=== PATIENT | male | born 1980 | race Caucasian/White ===

== ENCOUNTER 2016-06-14 20:44 | Emergency (ER) | payer BC ==
[2016-06-14 21:17] VITALS: BP 115/71
--- NOTE | 2016-06-14 21:17 | EDM.PDOC ---
ED HPI Behavioral Health - General Chief Complaint: Drug or Alcohol Abuse Stated Complaint: DETOX Time Seen by Provider: 06/14/16 21:17 Source of Information: Reports: Patient, Family Exam Limitations: Reports: No limitations - History of Present Illness INITIAL COMMENTS - FREE TEXT/NARRATIVE: HISTORY AND PHYSICAL: [35-year-old male presenting with alcohol intake requesting detox History of Present Illness: [Patient has been drinking for over a year to be with beer States occasional hard liquor He is agreeable to be evaluated in [place] art intake refusing evaluation here] Review of Systems: As per history of present illness and below otherwise all systems reviewed and negative. Past medical history: As per history of present illness and as reviewed below otherwise noncontributory. Surgical history: As per history of present illness and as reviewed below otherwise noncontributory. Social history: No reported history of drug or alcohol abuse. Family history: As per history of present illness and as reviewed below otherwise noncontributory. Physical exam: Alert male who as alcoholics Answer questions appropriately States that he does not want to be treated here Diagnostics: [] Therapeutics: [] Impression: [] Alcohol abuse Plan: [Presented to [facility] for alcohol evaluation] Call was made to in the ER I spoke with Dr. Senior 9:30 PM who is aware that patient is on his way Definitive disposition and diagnosis as appropriate pending reevaluation and review of above. - Related Data Allergies Allergy/AdvReac Type Severity Reaction Status Date / Time No Known Allergies Allergy Verified 06/14/16 21:17 Home Medications: Home Meds . [No Known Home Meds] 06/14/16 [History] ED ROS GENERAL - Review of Systems Review Of Systems: ROS reveals no pertinent complaints other than HPI. ED EXAM, BEHAVIORAL HEALTH - Physical Exam Exam: See Below (see dictation) COURSE, BEHAVIORAL HEALTH COMP - Course Vital Signs: Last Vital Signs Temp 36.7 C 06/14/16 21:13 Pulse 103 H 06/14/16 21:13 Resp 19 06/14/16 21:13 BP 115/71 06/14/16 21:13 Pulse Ox 95 06/14/16 21:13 Departure - Departure Time of Disposition: 21:38 Disposition: DC/Tfer to Acute Hospital 02 Condition: fair Clinical Impression: Alcohol abuse Forms: ED Department Discharge Additional Instructions: The following information is given to patients seen in the emergency department who are being discharged to home. This information is to outline your options for follow-up care. We provide all patients seen in our emergency department with a follow-up referral. The need for follow-up, as well as the timing and circumstances, are variable depending upon the specifics of your emergency department visit. If you don't have a primary care physician on staff, we will provide you with a referral. We always advise you to contact your personal physician following an emergency department visit to inform them of the circumstance of the visit and for follow-up with them and/or the need for any referrals to a consulting specialist. The emergency department will also refer you to a specialist when appropriate. This referral assures that you have the opportunity for followup care with a specialist. All of these measure are taken in an effort to provide you with optimal care, which includes your followup. Under all circumstances we always encourage you to contact your private physician who remains a resource for coordinating your care. When calling for followup care, please make the office aware that this follow-up is from your recent emergency room visit. If for any reason you are refused follow-up, please contact the [facility] emergency department at and asked to speak to the emergency department charge nurse. Patient has left per private vehicle to travel to [place]
== END 2016-06-14 21:52 | disposition home or self-care (01) ==
LOC: MW.ED 20:44
DX: F10.10 Alcohol abuse, uncomplicated (principal)
CPT/HCPCS: 99282

== ENCOUNTER 2016-10-07 19:33 | Emergency (ER) | payer SELFPAY ==
--- NOTE | 2016-10-07 19:38 | EDM.PDOC ---
ED HPI GENERAL MEDICAL PROBLEM - General Chief Complaint: Behavioral/Psych Stated Complaint: SUICIDAL Time Seen by Provider: 10/07/16 19:34 - History of Present Illness INITIAL COMMENTS - FREE TEXT/NARRATIVE: HISTORY AND PHYSICAL: History of present illness: Patient 36-year-old white male presents status post attempted suicide in the form of pain he went outside to try to do this neighbors called police they arrived they ligature from his neck there was no injury there is no association is awake alert in no seeming injury. He denies any ingestions or other concern he admits to alcohol problems and states he's had personal problems with his children. He remains depressed and suicidal he is somewhat somnolent here but he is polite and cooperative at this point Review of systems: As per history of present illness and below otherwise all systems reviewed and negative. Past medical history: As per history of present illness and as reviewed below otherwise noncontributory. Surgical history: As per history of present illness and as reviewed below otherwise noncontributory. Social history: No reported history of drug or alcohol abuse. Family history: As per history of present illness and as reviewed below otherwise noncontributory. Physical exam: HEENT: Atraumatic, normocephalic, pupils reactive, negative for conjunctival pallor or scleral icterus, mucous membranes moist, throat clear, neck supple, nontender, trachea midline. Lungs: Clear to auscultation, breath sounds equal bilaterally, chest nontender. Heart: S1S2, regular, negative for clicks, rubs, or JVD. Abdomen: Soft, nondistended, nontender. Negative for masses or hepatosplenomegaly. Negative for costovertebral tenderness. Pelvis: Stable nontender. Genitourinary: Deferred. Rectal: Deferred. Extremities: Atraumatic, negative for cords or calf pain. Neurovascular unremarkable. Neuro: Awake, alert, oriented. Cranial nerves II through XII unremarkable. Cerebellum unremarkable. Motor and sensory unremarkable throughout. Exam nonfocal. Diagnostics: CBC CMP aspirin Tylenol level EKG UA urine drug screen EtOH chest x-ray cervical spine x-ray Therapeutics: None Impression: #1 depressed episode with suicide attempt #2 attempted hanging #3 history of alcohol abuse Definitive disposition and diagnosis as appropriate pending reevaluation and review of above. - Related Data Allergies Allergy/AdvReac Type Severity Reaction Status Date / Time No Known Allergies Allergy Verified 05/07/17 21:17 Home Meds: Home Meds . [No Known Home Meds] 06/14/16 [History] Past Medical History - Past Health History Medical/Surgical History: Denies Medical/Surgical History - Past Surgical History Other Musculoskeletal Surgeries/Procedures:: bilateral hand surgeries, pin on right hand Social & Family History - Family History Family Medical History: Noncontributory - Tobacco Use Smoking Status *Q: Never Smoker Second Hand Smoke Exposure: No - Caffeine Use Caffeine Use: Reports: Coffee Caffeine Use Comment: 1cup/day - Alcohol Use Days Per Week of Alcohol Use: 7 Number of Drinks Per Day: 24 Total Drinks Per Week: 168 - Recreational Drug Use Recreational Drug Use: Yes Recreational Drug Type: Reports: Marijuana/Hashish Recreational Drug Use Frequency: Daily ED ROS GENERAL - Review of Systems Review Of Systems: ROS reveals no pertinent complaints other than HPI. ED EXAM, GENERAL - Physical Exam Exam: See Below (See dictated) Course - Vital Signs Last Recorded V/S: Last Vital Signs Temp 36.4 C 10/07/16 19:33 Pulse 90 10/07/16 19:45 Resp 18 10/07/16 19:45 BP 131/84 10/07/16 19:45 Pulse Ox 98 10/07/16 19:45 - Orders/Labs/Meds Orders: Active Orders 24 hr Category Date Time Status EKG Documentation Completion [RC] STAT Care 10/07/16 19:35 Active Pulse Oximetry [RC] ASDIRECTED Care 10/07/16 19:36 Active Cervical Spine 2V or 3V [CR] Stat Exams 10/07/16 19:35 Taken Chest 1V Frontal [CR] Stat Exams 10/07/16 19:36 Taken Labs: Laboratory Tests 10/07/16 10/07/16 10/07/16 Range/Units 19:40 19:40 19:44 WBC 7.02 (4.0-11.0) K/uL RBC 5.22 (4.50-5.90) M/uL Hgb 16.0 (13.0-17.0) g/dL Hct 46.8 (38.0-50.0) % MCV 89.7 (80.0-98.0) fL MCH 30.7 (27.0-32.0) pg MCHC 34.2 (31.0-37.0) g/dL RDW Std Deviation 43.4 (28.0-62.0) fl RDW Coeff of Nataly 13 (11.0-15.0) % Plt Count 224 (150-400) K/uL MPV 10.10 (7.40-12.00) fL Neut % (Auto) 58.1 (48.0-80.0) % Lymph % (Auto) 29.6 (16.0-40.0) % Baker % (Auto) 10.5 (0.0-15.0) % Eos % (Auto) 1.7 (0.0-7.0) % Baso % (Auto) 0.1 (0.0-1.5) % Neut # (Auto) 4.1 (1.4-5.7) K/uL Lymph # (Auto) 2.1 (0.6-2.4) K/uL Baker # (Auto) 0.7 (0.0-0.8) K/uL Eos # (Auto) 0.1 (0.0-0.7) K/uL Baso # (Auto) 0.0 (0.0-0.1) K/uL Nucleated RBC % 0.0 /100WBC Nucleated RBCs # 0 K/uL Sodium (136-146) mmol/L Potassium (3.5-5.1) mmol/L Chloride (98-110) mmol/L Carbon Dioxide (21-31) mmol/L BUN (6.0-23.0) mg/dL Creatinine (0.6-1.5) mg/dL Est Cr Clr Drug Dosing mL/min Estimated GFR (MDRD) ml/min Glucose (60-110) mg/dL Calcium (8.8-10.8) mg/dL Total Bilirubin (0.1-1.5) mg/dL AST (5-40) IU/L ALT (8-54) IU/L Alkaline Phosphatase (40-150) Total Protein (6.0-8.0) g/dL Albumin (3.5-5.0) g/dL Globulin (2.0-3.5) g/dL Albumin/Globulin Ratio (1.3-2.8) Urine Color DARK YELLOW Urine Appearance CLEAR Urine pH 5.5 (5.0-8.0) Ur Specific Rhome >= 1.030 (1.001-1.035) Urine Protein TRACE (NEGATIVE) mg/dL Urine Glucose (UA) NEGATIVE (NEGATIVE) mg/dL Urine Ketones TRACE H (NEGATIVE) mg/dL Urine Occult Blood NEGATIVE (NEGATIVE) Urine Nitrite NEGATIVE (NEGATIVE) Urine Bilirubin NEGATIVE (NEGATIVE) Urine Urobilinogen 0.2 (<2.0) EU/dL Ur Leukocyte Esterase NEGATIVE (NEGATIVE) Urine RBC 0-1 (0-2/HPF) Urine WBC 1-3 (0-5/HPF) Ur Epithelial Cells FEW (NONE-FEW) Urine Bacteria 1+ H (NEGATIVE) Urine Mucus MODERATE (NONE-MOD) Salicylates (0-20) mg/dL Urine Opiates Screen NEGATIVE (NEGATIVE) Ur Oxycodone Screen NEGATIVE (NEGATIVE) Urine Methadone Screen NEGATIVE (NEGATIVE) Acetaminophen ug/mL Ur Barbiturates Screen NEGATIVE (NEGATIVE) Ur Phencyclidine Scrn NEGATIVE (NEGATIVE) Ur Amphetamine Screen POSITIVE (NEGATIVE) U Methamphetamines Scrn POSITIVE (NEGATIVE) U Benzodiazepines Scrn NEGATIVE (NEGATIVE) U Cocaine Metab Screen NEGATIVE (NEGATIVE) U Marijuana (THC) Screen POSITIVE (NEGATIVE) Ethyl Alcohol mg/dL 10/07/16 Range/Units 19:44 WBC (4.0-11.0) K/uL RBC (4.50-5.90) M/uL Hgb (13.0-17.0) g/dL Hct (38.0-50.0) % MCV (80.0-98.0) fL MCH (27.0-32.0) pg MCHC (31.0-37.0) g/dL RDW Std Deviation (28.0-62.0) fl RDW Coeff of Nataly (11.0-15.0) % Plt Count (150-400) K/uL MPV (7.40-12.00) fL Neut % (Auto) (48.0-80.0) % Lymph % (Auto) (16.0-40.0) % Baker % (Auto) (0.0-15.0) % Eos % (Auto) (0.0-7.0) % Baso % (Auto) (0.0-1.5) % Neut # (Auto) (1.4-5.7) K/uL Lymph # (Auto) (0.6-2.4) K/uL Baker # (Auto) (0.0-0.8) K/uL Eos # (Auto) (0.0-0.7) K/uL Baso # (Auto) (0.0-0.1) K/uL Nucleated RBC % /100WBC Nucleated RBCs # K/uL Sodium 140 (136-146) mmol/L Potassium 3.8 (3.5-5.1) mmol/L Chloride 104 (98-110) mmol/L Carbon Dioxide 23 (21-31) mmol/L BUN 20 (6.0-23.0) mg/dL Creatinine 1.0 (0.6-1.5) mg/dL Est Cr Clr Drug Dosing 107.47 mL/min Estimated GFR (MDRD) > 60.0 ml/min Glucose 85 (60-110) mg/dL Calcium 9.7 (8.8-10.8) mg/dL Total Bilirubin 0.8 (0.1-1.5) mg/dL AST 39 (5-40) IU/L ALT 51 (8-54) IU/L Alkaline Phosphatase 100 (40-150) Total Protein 7.9 (6.0-8.0) g/dL Albumin 4.7 (3.5-5.0) g/dL Globulin 3.2 (2.0-3.5) g/dL Albumin/Globulin Ratio 1.5 (1.3-2.8) Urine Color Urine Appearance Urine pH (5.0-8.0) Ur Specific Rhome (1.001-1.035) Urine Protein (NEGATIVE) mg/dL Urine Glucose (UA) (NEGATIVE) mg/dL Urine Ketones (NEGATIVE) mg/dL Urine Occult Blood (NEGATIVE) Urine Nitrite (NEGATIVE) Urine Bilirubin (NEGATIVE) Urine Urobilinogen (<2.0) EU/dL Ur Leukocyte Esterase (NEGATIVE) Urine RBC (0-2/HPF) Urine WBC (0-5/HPF) Ur Epithelial Cells (NONE-FEW) Urine Bacteria (NEGATIVE) Urine Mucus (NONE-MOD) Salicylates < 5.0 (0-20) mg/dL Urine Opiates Screen (NEGATIVE) Ur Oxycodone Screen (NEGATIVE) Urine Methadone Screen (NEGATIVE) Acetaminophen < 3.0 ug/mL Ur Barbiturates Screen (NEGATIVE) Ur Phencyclidine Scrn (NEGATIVE) Ur Amphetamine Screen (NEGATIVE) U Methamphetamines Scrn (NEGATIVE) U Benzodiazepines Scrn (NEGATIVE) U Cocaine Metab Screen (NEGATIVE) U Marijuana (THC) Screen (NEGATIVE) Ethyl Alcohol 10.7 mg/dL Departure - Departure Time of Disposition: 21:10 Disposition: DC/Tfer to Psych Hosp/Unit 65 Condition: Good Clinical Impression: Depressive disorder, Self-harm - Discharge Information Forms: ED Department Discharge - My Orders Last 24 Hours: My Active Orders 10/07/16 19:35 EKG Documentation Completion [RC] STAT Cervical Spine 2V or 3V [CR] Stat 10/07/16 19:36 Pulse Oximetry [RC] ASDIRECTED Chest 1V Frontal [CR] Stat - Assessment/Plan Last 24 Hours: My Active Orders 10/07/16 19:35 EKG Documentation Completion [RC] STAT Cervical Spine 2V or 3V [CR] Stat 10/07/16 19:36 Pulse Oximetry [RC] ASDIRECTED Chest 1V Frontal [CR] Stat
[2016-10-07 20:17] LABS: ACETAMINOPHEN < 3.0 ug/mL; CHLORIDE,CL 104 mmol/L (98-110); SODIUM,NA 140 mmol/L (136-146)
[2016-10-07 21:17] VITALS: BP 121/89
--- NOTE | 2016-10-08 09:47 | CR ---
EXAM DATE: 10/07/16 PATIENT'S AGE: 36 Patient: BENIGNO BAZZI Facility: [place], [place] Site . Site : 1980 Study: XRay Spine Cervical [id number]/30/2017 8:23:36 PM Ordering Physician: Sang Santos Final Report: INDICATION: attempted hanging FINDINGS: AP, lateral, swimmer`s and odontoid views of the cervical spine were obtained. There is no fracture seen or subluxation. There is no prevertebral soft tissue swelling. There is mild degenerative disc disease at the C6-7 level. IMPRESSION: No acute bone abnormality. Dictated by Magdaleno Gonzales MD @ 10/07/2016 8:53:17 PM Dictated by: Magdaleno Gonzales MD @ 10/07/2016 20:53:27 (Electronic Signature) Report Signed by Proxy. JOHNNY
--- NOTE | 2016-10-08 09:49 | CR ---
EXAM DATE: 10/07/16 PATIENT'S AGE: 36 Patient: BENIGNO BAZZI Facility: [place], [place] Site . Site : 1980 Study: XRay Chest [id number]/30/2017 8:23:57 PM Ordering Physician: Sang Santso Final Report: INDICATION: Suicidal. FINDINGS: A PA view of the chest was obtained. The cardiac silhouette and pulmonary vasculature are within normal limits. The lungs are clear bilaterally. IMPRESSION: No evidence of acute pulmonary disease. Dictated by Magdaleno Gonzales MD @ 10/07/2016 8:50:05 PM Dictated by: Magdaleno Gonzales MD @ 10/07/2016 20:50:42 (Electronic Signature) Report Signed by Proxy. [facility]
== END 2016-10-07 21:00 ==
LOC: MW.ED 19:33
DX: T14.91 Suicide attempt (principal); F32.9 Major depressive disorder, single episode, unspecified; X83.8XXA Intentional self-harm by other specified means, initial encounter
CPT/HCPCS: 36415; 71010; 72040; 80053; 80305; 81001; 85025; 93005; 99285; G0480; 99283